=== PATIENT | female | born 1955 | race Caucasian/White ===

== ENCOUNTER 2018-07-10 14:22 | Inpatient (IN) | payer OTHER ==
[~2018-07-10] VITALS: Ht 162.6 cm; Wt 94.5 kg
[2018-07-10 15:12] LABS: BASOPHILS ABSOLUTE AUTO 0.04 K/mm3 (0.00-0.23); BASOPHILS PERCENT AUTO 0 % (0-2); EOSINOPHILS ABSOLUTE AUTO 0.02 K/mm3 (0.00-0.68); EOSINOPHILS PERCENT AUTO 0 % (0-6); Hematocrit 48.3 % (33.0-51.0); Hemoglobin 15.7 g/dL (11.5-16.0); IMMATURE GRAN ABSOLUTE AUTO 0.03 K/mm3 (0.00-0.10); IMMATURE GRAN PERCENT AUTO 0 % (0-1); LYMPHOCYTES ABSOLUTE AUTO 0.62 K/mm3 (0.84-5.20); LYMPHOCYTES PERCENT AUTO 7 % (21-46); MONOCYTES ABSOLUTE AUTO 0.43 K/mm3 (0.16-1.47); MONOCYTES PERCENT AUTO 5 % (4-13); Mean Corpuscular HGB 31.5 pg (26.0-34.0); Mean Corpuscular HGB Conc 32.5 g/dL (31.5-36.5); Mean Corpuscular Volume 97 fL (80-100); Mean Platelet Volume 10.5 fL (9.1-12.4); NEUTROPHILS ABSOLUTE AUTO 8.45 K/mm3 (1.96-9.15); NEUTROPHILS PERCENT AUTO 88 % (41-73); Platelet Count 233 K/mm3 (150-400); RDW Coefficient Variation 13.7 % (11.7-14.2); RDW Standard Deviation 49.4 fL (35.1-46.3); Red Blood Cell Count 4.99 M/mm3 (3.80-5.20); White Blood Cell Count 9.59 K/mm3 (4.00-11.30)
[2018-07-10 15:40] LABS: Alanine Aminotransfer (ALT/SGP 63 U/L (12-78); Albumin, Blood 3.9 g/dL (3.4-5.0); Alk Phos 78 U/L (50-136); Anion Gap 7 mmol/L (6-16); Aspartate Aminotrans (AST/SGOT 33 U/L (12-37); Bilirubin, Total 0.9 mg/dL (0.1-1.0); Blood Urea Nitrogen 10 mg/dL (8-24); Bun/Creatinine Ratio 15.8 (12.0-20.0); CO2, Blood 29 mmol/L (21-32); Calcium, Blood 9.4 mg/dL (8.5-10.1); Chloride, Blood 105 mmol/L (98-108); Creatinine, Blood 0.63 mg/dL (0.40-1.00); Globulin, Blood 3.8 g/dL (2.2-4.0); Glomerular Filtration Rate >60 (60-); Glucose, Blood 123 mg/dL (70-99); Potassium, Blood 3.6 mmol/L (3.5-5.5); Sodium, Blood 141 mmol/L (136-145); Total Protein, Blood 7.7 g/dL (6.4-8.2); Troponin I <0.015 ng/mL (0.000-0.040)
[2018-07-10] MEDS ORDERED: ATEN100 PO (16:29)
[2018-07-10] MEDS ORDERED: HYDCHL25 PO (16:30)
[2018-07-10] MEDS ORDERED: PRED20 PO (16:30)
[2018-07-10] MEDS ORDERED: ALBU3IS INH (16:30)
[2018-07-10] MEDS ORDERED: ATOR10 PO (16:31)
[2018-07-10] MEDS ORDERED: ALBU90OI6 INH (16:31)
[2018-07-10] MEDS ORDERED: POTCIT10 PO (16:31)
[2018-07-10] MEDS ORDERED: Mobic15 MG PO (16:31)
[2018-07-10] MEDS ORDERED: TIOT18 INH (16:31)
[2018-07-10] MEDS ORDERED: GUAI600T33 PO (19:24)
[2018-07-10 20:52] LABS: Adenovirus Not Detected (NOT DETECT); Bordetella pertussis Not Detected (NOT DETECT); Chlamydophila pneumoniae Not Detected (NOT DETECT); Coronavirus 229E Not Detected (NOT DETECT); Coronavirus HKU1 Not Detected (NOT DETECT); Coronavirus NL63 Not Detected (NOT DETECT); Coronavirus OC43 Not Detected (NOT DETECT); Human Metapneumovirus Not Detected (NOT DETECT); Human Rhinovirus/Enterovirus Not Detected (NOT DETECT); Influenza A Not Detected (NOT DETECT); Influenza A/2009-H1 Not Detected (NOT DETECT); Influenza A/H1 Not Detected (NOT DETECT); Influenza A/H3 Not Detected (NOT DETECT); Influenza B Not Detected (NOT DETECT); Mycoplasma pneumoniae Not Detected (NOT DETECT); Parainfluenza Virus 1 Not Detected (NOT DETECT); Parainfluenza Virus 2 Not Detected (NOT DETECT); Parainfluenza Virus 3 Not Detected (NOT DETECT); Parainfluenza Virus 4 Not Detected (NOT DETECT); Respiratory Syncytial Virus Detected (NOT DETECT)
--- NOTE | 2018-07-11 04:44 | NUR ---
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 VERY SOB, ESPECIALLY WITH EXERTION. LUNG SOUNDS VERY DECREASED. NAGGING NONPRODUCTIVE COUGH. TESSALON GIVEN. PT ON 3 L O2 NC WITH O2 SATS BARELY ABOVE 90%. PT ONLY WEARS O2 PRN AT HOME. RESPIRATORY PANEL CAME BACK POSITIVE FOR RSV. PT PLACED IN DROPLET PRECAUTIONS. PT SLEPT WELL FOR SEVERAL HOURS BUT AFTER WAKING WAS NOT ABLE TO GET BACK TO SLEEP. MEDICATED X 1 FOR HEADACHE W/ 650 MG TYLENOL. BLOOD PRESSURE ELEVATED THIS AM, MORE SO WHEN PT FEELING SOB. OTHERWISE VSS. WILL CONTINUE TO MONITOR AND REPORT TO DAY RN.
--- NOTE | 2018-07-11 18:38 | NUR ---
SHIFT SUMMARY 63 YEAR OLD FEMALE. ADMITTED FOR COPD EXACERBATION. FULL CODE. IN DROPLET PRECAUTIONS FOR RSV. PT WANTED HER IV REMOVED. SHE REQUESTED ALL ORAL MEDS, TYLENOL 3 FOR HER HEADACHES AND ATENELOL FOR BP/HR CONTROL. PT EXPERIENCES SOB W/EXERTION. NON PRODUCTIVE COUGH. 2 LPM O2. 1 STANDBY ASSIST TO INDEPENDENT ACCORDING TO S/SX. CARDIAC DIET.
--- NOTE | 2018-07-12 07:29 | NUR ---
Rn summary: Patient is alert and oriented. She did talk on the phone the first 2.5 hours of shift with no distress. Pt denies any pain, just a hint of a QURESHI. Pt breath sounds are diminished, minimal air exchange heard. Pt on 2 liters of O2 which is her baseline. Patient was able to rest a few hours, does get SOB when up to the BR. This am pt was up to the BR, states she couldn't catch her breath. Pt found standing at bedside leaning over the bed on her elbows to try and catch her breath. O2 bumped to 4 liters to assist in air recovery. Pt reminded to do pursed lip breathing. REsp rate 20 RT called for treatment which was helpful. RT suggests she use the BSC but pt declines. Pt states prednisone is making her skin red. She also felt the flonase made her sinuses run and that she felt like she was "drowning" No real dis tress noted at that time. Pt c/o her throat feeling sore this am. Report to day shift RN. Call light in reach.
--- NOTE | 2018-07-12 17:38 | NUR ---
DISCHARGE NOTE NO IV ACCESS AT TIME OF DISCHARGE. DISCHARGE MEDICATIONS FAXED TO PREFERED PHARMACY. PT PROVIDED WITH HARDCOPY AND VERBAL INSTRUCTIONS FOR DISCHARGE INCLUDING MEDICATIONS, DIAGNOSES, AND FOLLOW UP APPOINTMENTS. PT PROVIDED WITH PERSONAL CLOTHES AND POSSESSIONS. ARCHITECTURE TECHNICIAN ESCORTED PT VIA WHEELCHAIR W/2 LPM VIA NC TO PERSONAL VEHICLE. PT HAD NO FURTHER QUESTIONS.
[2018-07-13] MEDS ORDERED: Flovent 110 MCG12 GM INH (19:02)
[2018-07-13] MEDS ORDERED: Ativan0.5 MG PO (20:28)
[2018-07-13] MEDS ORDERED: POTCHL20ER PO (20:37)
== END 2018-07-12 16:58 | disposition home or self-care (01) | DRG 189 ==
LOC: ER 14:22 → MEDS 17:26
PROVIDERS: Nurse Practitioner Acute Care; Physician Assistant; ADMIT Internal Medicine
DX: J96.21 Acute and chronic respiratory failure with hypoxia (principal); E66.01 Morbid (severe) obesity due to excess calories; E83.110 Hereditary hemochromatosis; I10 Essential (primary) hypertension; J43.9 Emphysema, unspecified; J32.9 Chronic sinusitis, unspecified; Z68.36 Body mass index [BMI] 36.0-36.9, adult; E78.5 Hyperlipidemia, unspecified; B97.4 Respiratory syncytial virus as the cause of diseases classified elsewhere; Z99.81 Dependence on supplemental oxygen; Z87.891 Personal history of nicotine dependence; J45.909 Unspecified asthma, uncomplicated
CPT/HCPCS: 71046; 80053; 84145; 84484; 85025; 87486; 87581; 87633; 87798; 93005; 93010; 94640; 94644; 94760; 96374; 96375; 99285-25; J1100; J2930; J7512

== ENCOUNTER 2021-09-24 10:04 | Emergency (ER) | payer MEDICARE, OTHER ==
[~2021-09-24] VITALS: Ht 162.6 cm; Wt 103.0 kg
[~2021-09-24 10:04] MED LIST: ALBU3IS INH; ALBU90OI6 INH; ATEN100 PO; ATOR10 PO; Ativan0.5 MG PO; DEXA4 PO; Flovent 110 MCG12 GM INH; GUAI600T33 PO; HYDCHL25 PO; Mobic15 MG PO; ONDA4ODT MM; POTCHL20ER PO; POTCIT10 PO; PRED20 PO; TIOT18 INH
== END 2021-09-24 12:21 | disposition home or self-care (01) ==
LOC: ER 10:04
DX: U07.1 COVID-19 (principal); J44.9 Chronic obstructive pulmonary disease, unspecified; I10 Essential (primary) hypertension; E78.5 Hyperlipidemia, unspecified; Z88.2 Allergy status to sulfonamides; Z88.8 Allergy status to other drugs, medicaments and biological substances; Z79.52 Long term (current) use of systemic steroids; Z79.899 Other long term (current) drug therapy
CPT/HCPCS: 71045; 99283-25

== ENCOUNTER 2023-07-16 16:35 | Emergency (ER) | payer MEDICARE ==
[~2023-07-16] VITALS: Ht 162.6 cm; Wt 102.1 kg
[~2023-07-16 16:35] MED LIST changes: +ALBU2.5V5 INH; +AZIT250 PO; +DELTASONE20 MG PO; +Ventolin/Prove6.7 GM INH
[2023-07-16] MEDS ORDERED: Albuterol 2.5 MG/3 ML VIAL INH SCH (17:25)
[2023-07-16 17:31] LABS: BASOPHILS ABSOLUTE AUTO 0.07 K/mm3 (0.00-0.23); BASOPHILS PERCENT AUTO 1 % (0-2); EOSINOPHILS ABSOLUTE AUTO 0.28 K/mm3 (0.00-0.68); EOSINOPHILS PERCENT AUTO 2 % (0-6); Hematocrit 44.4 % (33.0-51.0); Hemoglobin 14.5 g/dL (11.5-16.0); IMMATURE GRAN ABSOLUTE AUTO 0.06 K/mm3 (0.00-0.10); IMMATURE GRAN PERCENT AUTO 1 % (0-1); LYMPHOCYTES ABSOLUTE AUTO 2.69 K/mm3 (0.84-5.20); LYMPHOCYTES PERCENT AUTO 21 % (21-46); MONOCYTES ABSOLUTE AUTO 1.13 K/mm3 (0.16-1.47); MONOCYTES PERCENT AUTO 9 % (4-13); Mean Corpuscular HGB Conc 32.7 g/dL (31.5-36.5); Mean Corpuscular Volume 95 fL (80-100); Mean Platelet Volume 10.7 fL (9.1-12.4); NEUTROPHILS ABSOLUTE AUTO 8.42 K/mm3 (1.96-9.15); NEUTROPHILS PERCENT AUTO 67 % (41-73); Platelet Count 237 K/mm3 (150-400); RDW Coefficient Variation 13.3 % (11.7-14.2); RDW Standard Deviation 46.7 fL (35.1-46.3); Red Blood Cell Count 4.68 M/mm3 (3.80-5.20); White Blood Cell Count 12.65 K/mm3 (4.00-11.30)
[2023-07-16 17:45] LABS: Albumin, Blood 3.6 g/dL (3.4-5.0); Albumin/Globulin Ratio 0.9 (0.8-1.8); Bilirubin, Total 0.8 mg/dL (0.1-1.0); Bun/Creatinine Ratio 30.4 (12.0-20.0); Calcium, Blood 9.4 mg/dL (8.5-10.1); Creatinine, Blood 0.63 mg/dL (0.40-1.00); Globulin, Blood 4.2 g/dL (2.2-4.0); Potassium, Blood 3.8 mmol/L (3.5-5.5); Total Protein, Blood 7.8 g/dL (6.4-8.2)
[2023-07-16 18:54] LABS: Influenza A, PCR NEGATIVE (NEGATIVE); Influenza B, PCR NEGATIVE (NEGATIVE); Resp Syncytial Virus, PCR NEGATIVE (NEGATIVE); SARS-Cov-2 (COVID-19) PCR, MMC NEGATIVE (NEGATIVE)
[2023-07-16] MEDS ORDERED: DOXY100 PO ×2 (19:25→19:27)
[2023-07-16] MEDS ORDERED: PRED20 PO ×2 (19:25→19:27)
[2023-07-16] MEDS ORDERED: Doxycycline Hyclate 100 MG TAB PO ONE (19:25)
[2023-07-16 19:30] VITALS: BP 137/97
== END 2023-07-16 19:50 | disposition home or self-care (01) ==
LOC: ER 16:35
PROVIDERS: Student in an Organized Health Care Education/Training Program
DX: J44.1 Chronic obstructive pulmonary disease with (acute) exacerbation (principal); R09.02 Hypoxemia; Z88.2 Allergy status to sulfonamides; Z88.1 Allergy status to other antibiotic agents; Z88.8 Allergy status to other drugs, medicaments and biological substances; Z79.899 Other long term (current) drug therapy; Z79.52 Long term (current) use of systemic steroids; I10 Essential (primary) hypertension; E78.5 Hyperlipidemia, unspecified
CPT/HCPCS: 0241U; 71046; 80053; 83690; 83880; 84484; 85025; 93005; 93010; 94640; 94664; 99285-25; A9270

== ENCOUNTER 2023-08-03 08:40 | Emergency (ER) | payer MEDICARE ==
[~2023-08-03] VITALS: Ht 162.6 cm; Wt 99.8 kg
[2023-08-03 09:26] VITALS: BP 147/99
== END 2023-08-03 11:26 | disposition home or self-care (01) ==
LOC: ER 08:40
DX: M54.42 Lumbago with sciatica, left side (principal); J44.9 Chronic obstructive pulmonary disease, unspecified; E66.01 Morbid (severe) obesity due to excess calories; Z68.37 Body mass index [BMI] 37.0-37.9, adult; I10 Essential (primary) hypertension; E78.5 Hyperlipidemia, unspecified; E83.119 Hemochromatosis, unspecified; Z88.2 Allergy status to sulfonamides; Z88.8 Allergy status to other drugs, medicaments and biological substances; Z79.899 Other long term (current) drug therapy; Z79.52 Long term (current) use of systemic steroids

== ENCOUNTER 2023-09-22 13:55 | Inpatient (IN) | payer MEDICARE ==
[~2023-09-22] VITALS: Ht 162.6 cm; Wt 106.6 kg
[~2023-09-22 13:55] MED LIST changes: -ATEN100 PO; +ATENOLOL PO; +CYCL10 PO; +DEXA2 PO; +DOXY100 PO; +IPRAT-ALBUT 0.5-3 ML INH; +LIDO700A20 TOP; +SPIRIVA RESPIMAT4 G3 IH
[2023-09-22] MEDS ORDERED: Ipratropium/Albuterol SulF 2.5-0.5MG/3 ML Amp INH ONE ×2 (14:05→14:45)
[2023-09-22] MEDS ORDERED: NS 1,000 ML IV SCH (14:05)
[2023-09-22] MEDS ORDERED: Magnesium Sulf 2 GM/Water 50ML 50 ML IV ONE (14:05)
[2023-09-22 14:13] LABS: Base Excess Venous 2.5 mmol/L; Bicarbonate Venous 26.1 mmol/L (24.0-30.0); PCO2 Venous 43.7 mmHg (38-42)
[2023-09-22 14:19] LABS: BASOPHILS ABSOLUTE AUTO 0.06 K/mm3 (0.00-0.23); BASOPHILS PERCENT AUTO 0 % (0-2); EOSINOPHILS PERCENT AUTO 2 % (0-6); Hematocrit 43.6 % (33.0-51.0); Hemoglobin 14.2 g/dL (11.5-16.0); IMMATURE GRAN ABSOLUTE AUTO 0.08 K/mm3 (0.00-0.10); IMMATURE GRAN PERCENT AUTO 1 % (0-1); LYMPHOCYTES ABSOLUTE AUTO 1.93 K/mm3 (0.84-5.20); LYMPHOCYTES PERCENT AUTO 14 % (21-46); MONOCYTES ABSOLUTE AUTO 1.64 K/mm3 (0.16-1.47); MONOCYTES PERCENT AUTO 12 % (4-13); Mean Corpuscular HGB 31.2 pg (26.0-34.0); Mean Corpuscular HGB Conc 32.6 g/dL (31.5-36.5); Mean Corpuscular Volume 96 fL (80-100); Mean Platelet Volume 9.8 fL (9.1-12.4); NEUTROPHILS ABSOLUTE AUTO 9.78 K/mm3 (1.96-9.15); NEUTROPHILS PERCENT AUTO 71 % (41-73); Platelet Count 190 K/mm3 (150-400); RDW Coefficient Variation 14.5 % (11.7-14.2); RDW Standard Deviation 50.7 fL (35.1-46.3); Red Blood Cell Count 4.55 M/mm3 (3.80-5.20); White Blood Cell Count 13.79 K/mm3 (4.00-11.30)
[2023-09-22] MEDS ORDERED: LORazepam 2 MG/ML 1ML Injection IV ONE (14:25)
[2023-09-22 14:38] LABS: Albumin, Blood 3.3 g/dL (3.4-5.0); Albumin/Globulin Ratio 0.8 (0.8-1.8); Bilirubin, Total 2.8 mg/dL (0.1-1.0); Bun/Creatinine Ratio 25.6 (12.0-20.0); Calcium, Blood 8.7 mg/dL (8.5-10.1); Creatinine, Blood 0.59 mg/dL (0.40-1.00); Globulin, Blood 3.9 g/dL (2.2-4.0); Potassium, Blood 3.8 mmol/L (3.5-5.5); Total Protein, Blood 7.2 g/dL (6.4-8.2)
[2023-09-22 15:15] LABS: Influenza A, PCR NEGATIVE (NEGATIVE); Influenza B, PCR NEGATIVE (NEGATIVE); Resp Syncytial Virus, PCR NEGATIVE (NEGATIVE); SARS-Cov-2 (COVID-19) PCR, MMC NEGATIVE (NEGATIVE)
[2023-09-22] MEDS ORDERED: Albuterol 2.5 MG/3 ML VIAL INH SCH (15:40)
[2023-09-22] MEDS ORDERED: MethylPREDNISolone Sod Succ 125 MG Vial IV ONE (16:50)
[2023-09-22] MEDS ORDERED: Ipratropium/Albuterol SulF 2.5-0.5MG/3 ML Amp INH SCH (17:45)
[2023-09-22] MEDS ORDERED: Ondansetron HCl 2 MG / ML 2ML Vial IV PRN (17:50)
[2023-09-22] MEDS ORDERED: Acetaminophen 325 MG TABLET PO PRN (17:50)
[2023-09-22] MEDS ORDERED: Albuterol 2.5 MG/3 ML VIAL INH PRN (17:50)
[2023-09-22] MEDS ORDERED: Azithromycin 500 MG in NS 250 ML IV SCH (18:00)
[2023-09-22 18:31] LABS: PCO2 Venous 33.7 mmHg (38-42); pH Blood Venous 7.45 (7.34-7.37)
[2023-09-22 18:32] LABS: Base Excess Venous -0.6 mmol/L; Bicarbonate Venous 24.5 mmol/L (24.0-30.0)
--- NOTE | 2023-09-22 21:23 | NUR ---
ADMIT NOTE: PT ARRIVED TO PCU ON 3L NC, SHE REPORTS SOB, SPO2 >95%, DENIES BIPAP. SHE IS A/O\X4 AND ABLE TO MAKE HER NEEDS KNOWN. WAS AT BEDSIDE, VERIFIED HIS NUMBER AND WENT HOME FOR THE NIGHT. PT IS ON TELE SINUS TACH, DENIES CHEST PAIN/PRESSURE. SHE HAS 2+PITTING EDEMA IN THE LOWER EXTRIMITIES, REPORTS TENDERNESS IN HER ANKLES FROM SWELLING. SHE HAS A RED SWOLLEN BLISTER ON HER LEFT ELBOW, PT REPORTS IT IS FROM WORKING ON THE COMPUTER. PICTURES ARE IN THE CHART. WILL CONTINUE TO MONITOR AND PROVIDE CARE
--- NOTE | 2023-09-22 21:53 | NUR ---
HOSPITALIST NOTIFIED OF PRESSURE INJURY ON LEFT ELBOW
[2023-09-23] VITALS: BP 133/84
[2023-09-23] MEDS ORDERED: MethylPREDNISolone Sod Succ 125 MG Vial IV SCH
[2023-09-23] MEDS ORDERED: LORazepam 2 MG/ML 1ML Injection IV PRN (01:40)
[2023-09-23 04:00] VITALS: BP 123/68
[2023-09-23 07:52] LABS: Source, Urine Clean Catch
[2023-09-23 07:57] LABS: Bilirubin, Urine Neg (Neg); Blood, Urine 1+ (Neg); Glucose Qualitative, Urine 4+ (Neg); Ketones, Urine 3+ (Neg); Leukocyte Esterase, Urine 1+ (Neg); Nitrite, Urine Neg (Neg); Protein, Urine 2+ (Neg); Specific Gravity, Urine 1.025 (1.003-1.022); Urobilinogen, Urine 1+ (Normal)
[2023-09-23 08:01] VITALS: BP 128/85
[2023-09-23 08:17] LABS: Appearance, Urine Hazy (Clear); Color, Urine Yellow (P-Yellow)
[2023-09-23 08:18] LABS: Amorphous Light (0-Heavy); Bacteria Many /hpf; Hyaline Casts 0-2 /lpf (0-2); Mucus Light (0-Heavy); Squamous Epithelial Cells Mod /hpf (Few)
[2023-09-23] MEDS ORDERED: Enoxaparin 40 MG/0.4 ML SYR SC SCH (09:00)
[2023-09-23] MEDS ORDERED: FURO20 PO (11:11)
[2023-09-23] MEDS ORDERED: SPIRIVA RESPIMAT4 G3 INH (11:26)
[2023-09-23] MEDS ORDERED: PRED20 PO (11:38)
[2023-09-23] MEDS ORDERED: AMOCLA875 PO (11:39)
[2023-09-23] MEDS ORDERED: LORA.5 PO (11:40)
--- NOTE | 2023-09-23 12:13 | NUR ---
DISCHARGE UPDATE DISCHARGE PACKET GONE OVER WITH PT AND PT AT 1200. PT DISCHARGED AT 1218 VIA WHEELCHAIR AND ON 2L NC. DISCHARGE PACKET AND HARD SCRIPT FOR ATIVAN WITH PT AT TIME OF DISCHARGE. PT ABLE TO TRANSFER TO AND FROM WHEELCHAIR WITH MINIMAL ASSISTANCE, TOLERATED WELL. PT PERSONAL BELONGINGS WITH AT TIME OF DISCHARGE.
== END 2023-09-23 11:52 | disposition home or self-care (01) | DRG 191 ==
LOC: ER 13:55 → PCU 17:44
PROVIDERS: Emergency Medicine; Internal Medicine; Nurse Practitioner Acute Care; ADMIT Student in an Organized Health Care Education/Training Program
DX: J44.1 Chronic obstructive pulmonary disease with (acute) exacerbation (principal); E87.21 Acute metabolic acidosis; F41.9 Anxiety disorder, unspecified; I10 Essential (primary) hypertension; E78.5 Hyperlipidemia, unspecified; E66.01 Morbid (severe) obesity due to excess calories; L89.029 Pressure ulcer of left elbow, unspecified stage; Z86.79 Personal history of other diseases of the circulatory system; Z88.2 Allergy status to sulfonamides; Z88.8 Allergy status to other drugs, medicaments and biological substances; Z87.891 Personal history of nicotine dependence; Z66 Do not resuscitate; Z68.31 Body mass index [BMI] 31.0-31.9, adult
CPT/HCPCS: 0241U; 71045; 80053; 81001; 82803; 85025; 93005; 93010; 94640; 94645; 94660; 94664; 94762; 96365; 96366; 96375; 99285-25; J0456; J1650; J2060; J2919; J3475; J7030; J7050